=== PATIENT | male | born 1940 | race Caucasian/White ===

== ENCOUNTER → 2023-07-31 15:40 | Outpatient (REF) | payer MEDICARE, SELFPAY | LOC: RAD 15:40 | PROVIDERS: ATTENDING PHYSICIAN Family Medicine | DX: R42 Dizziness and giddiness (principal) | CPT/HCPCS: 70450 ==

== ENCOUNTER → 2023-12-29 09:39 | Outpatient (REF) | payer MEDICARE, SELFPAY ==
[2023-12-29 12:21] LABS: Hematocrit 37.4 % (39.0-52.0); Hemoglobin 12.8 g/dL (13.0-18.0); Mean Corp Hgb Conc. 34.2 g/dL (33.0-37.0); Mean Corpuscular Hgb 31.4 pg (27.0-31.0); Mean Corpuscular Volume 91.9 fL (80.0-94.0); Mean Platelet Volume 11.9 fL (7.4-10.4); Platelet Count 129 10^3/uL (130-400); Red Blood Cell Count 4.07 10^6/uL (4.70-6.10); Red Cell Dist. Width 13.2 % (11.5-14.5); White Blood Cell Count 5.5 10^3/uL (4.8-10.8)
[2023-12-29 12:24] LABS: PSA, Total - Screen 1.68 ng/ml (0.0-4.0)
== END ==
LOC: HWLAB 09:39
PROVIDERS: ATTENDING PHYSICIAN Specialist; FAMILY PHYSICIAN Family Medicine
DX: E29.1 Testicular hypofunction (principal); Z12.5 Encounter for screening for malignant neoplasm of prostate
CPT/HCPCS: 36415; 84403; 85027; G0103

== ENCOUNTER → 2024-01-05 10:24 | Outpatient (REF) | payer MEDICARE, SELFPAY ==
[2024-01-05 12:00] LABS: Blood Urea Nitrogen 22 mg/dl (9-20); Calcium 9.7 mg/dl (8.4-10.2); Carbon Dioxide 25 mmol/L (22-30); Chloride 102 mmol/L (98-107); Glucose 102 mg/dl (70-99); Potassium 4.5 mmol/L (3.5-5.1); Sodium 143 mmol/L (135-145); eGFR > 60.00
== END ==
LOC: HWLAB 10:24
PROVIDERS: ATTENDING PHYSICIAN Specialist; FAMILY PHYSICIAN Family Medicine
DX: D49.512 Neoplasm of unspecified behavior of left kidney (principal)
CPT/HCPCS: 36415; 80048

== ENCOUNTER → 2024-01-08 15:05 | Outpatient (REF) | payer MEDICARE, SELFPAY | LOC: RAD 15:05 | PROVIDERS: ATTENDING PHYSICIAN Specialist; FAMILY PHYSICIAN Family Medicine | DX: D49.512 Neoplasm of unspecified behavior of left kidney (principal) | CPT/HCPCS: 74170; Q9967 ==

== ENCOUNTER 2024-01-15 21:14 | Observation (INO) | payer MEDICARE, SELFPAY ==
[2024-01-15 14:02] VITALS: BP 173/80
--- NOTE | 2024-01-15 15:09 | ED.GENMED ---
History of Present Illness
General
Chief Complaint: Dizziness
Source: patient
Exam Limitations: none
Time Seen by Provider: 01/15/24 15:08
Nursing documentation reviewed up to this point in time: agreed with
History of Present Illness
History of Present Illness:
83-year-old male with history of HTN but does not taken any medications.
States he has had 315 to 20-minute episodes of room spinning dizziness in the past 3 days. The last 1 was 1130 this morning when he was shopping at [employer], the room was spinning for 20 to 25 minutes at a intensity of 8/10, he continued shopping, he
drove to another food store, still felt 'disoriented' but eventually diminished to 3/10 which remains now. He denies change in vision. He denies headache.
He had a few similar episodes for past 2 years where dizziness 'almost brings me to my knees' but never several episodes within such a short time like recently.
He saw his ENT Dr. Morgan 2 days ago and he states Dr. Morgan did the Jaime's maneuver which was negative and he scheduled him for vertigo therapy and could not get any appointment until March.
He took his BP at one point today, he had some leftover losartan 50 mg today so he took 1 when he found his blood pressure to be high '193/83'
Has felt nauseous at times during these episodes but none now.
Denies CP, SOB, Abd pain, diarrhea/constipation. He has been urinating frequently today which is not normal for him '5-6 times in the past hour.' Denies dysuria.
Past History
Past History
ED Past Medical History: HTN (But does not take medication (losartan 50 mg))
ED Past Surgical History: Orthopedic and Other (Hernia repair)
Social History
Tobacco: Non-smoker
Alcohol: None
Drug: None
Personal:
Living: with family
Employment: Employed
Family History
Family History: Hypertension
Review of Systems
Review of Systems
Allergies reviewed?: Yes
All Other Systems: ROS reviewed and negative except as documented in HPI and ROS
Constitutional: Denies fever, fatigue or chills
Respiratory: Denies trouble breathing
Cardiac: Denies chest pain, diaphoresis or syncope
ABD/GI: Reports nausea (intermittent with the dizziness); Denies abdominal pain
: Reports frequency (today went 5-6 times in past hour); Denies dysuria, flank pain, incontinence or urgency
Musculoskeletal: Reports no symptoms; Denies edema
Skin: Reports no symptoms
Neurological: Reports dizzy; Denies headache, weakness or numbness
Phy Exam
Physical Exam
Physical Exam:
GENERAL: No acute distress. A&Ox3.
CONSTITUTIONAL: Afebrile.
EYES: PERRL, conjunctivae normal
Neck: Supple
ENMT: moist mucus membranes, Pharynx nl, TMs normal
RESPIRATORY: Regular respirations, nonlabored, lungs clear.
CARDIOVASCULAR: Regular rate and rhythm, no murmurs, no rubs.
GI: Soft, nontender, normal BS
MUSCULOSKELETAL: Moves with ease. Well perfused.
SKIN: Warm, dry, pink
PSYCH: Normal mood and affect. Well kept, interactive and appropriate
NEUROLOGIC: Awake, alert and oriented. No focal neurological deficits. CN 2-12 intact, Finger to nose intact, ambulates well with steady gait.
Course
Orders/Labs/Results
Orders:
Orders
01/15/24 14:06
Electrocardiogram (*1) Urgent
Reason for Study: Vertigo / Dizzy
EKG- Treatment ONCE
01/15/24 15:18
CT Head W/o Iv Contrast Urgent
Comment:
Reason For Exam: dizziness
01/15/24 16:04
Physical Therapy Consult [Pt Eval And Treat] Urgent
Treatment: vestibular evaluation
Activity Level: As Tolerated
01/15/24 16:17
Complete Blood Count/With Diff Urgent
Comprehensive Metabolic Panel Urgent
Manual Differential Urgent
Urinalysis Reflex To Culture Urgent
Date Specimen was Collected: 01/15/24
Time Specimen was Collected: 16:16
01/15/24 16:46
NEUROLOGY CONSULT Urgent
Consulting Provider: Juju Brown
Was physician already notified: Yes
Reason for consult: dizziness
01/15/24 16:49
CT Head & Neck Angio W/wo IV Urgent
Comment:
Reason For Exam: dizziness, Neurology requested
01/15/24 18:10
MRI Brain [MR Brain Without Contrast] Routine
Comment:
Reason For Exam: vertigo
OK for patient to be off Cardiac Monitoring for MRI: No
Recent pill cam endoscopy?: No
01/15/24 18:44
CRP [C-Reactive Protein] Routine
ESR [Erythrocyte Sed Rate] Routine
Magnesium Routine
PTH [Intact PTH Includes Calcium] Routine
01/15/24 20:37
Admit/Transfer Patient As Directed
Co-Sign Provider:
Level of Care: Observation services
Assign to:: Telemetry
Physician / Group: michael blake
Diagnosis: Dizziness concern CVA/TIA versus BPPV, HTN-noncompliant medication
Reason for Telemetry: CVA/TIA
Date to Stop Telemetry: 01/18/24
Time to Stop Telemetry: 11:00
Reason for Hospitalization: Dizziness concern CVA/TIA versus BPPV, HTN-noncompliant medication
Code Status As Directed
Resuscitation Status: Full Code
01/15/24 20:39
PRN Pain Medication Management As Directed
May give lesser potent ordered pain med per pt: Yes
preference::
Protocol:: Medication orders for pain may be administered in a
manner that supports deferring to patient preference
when the pt is:
- Requesting an ordered lesser potent pain medication.
Least to most potent pain medications are defined
as: acetaminophen < NSAID < tramadol < opioids
(morphine, oxycodone, hydromorphone).
- Requesting a lesser dose of the same medication IF
ORDERED.
- Requesting a less intrusive route of administration
if both routes are prescribed by the provider (PO <
IV).
01/18/24 11:00
DC Protocol for Telemetry ONCE
Abnormal Lab Results
01/15/24
16:17
RBC 4.07 L 10^6/uL
(4.70-6.10)
Hgb 12.7 L g/dL
(13.0-18.0)
Hct 37.3 L %
(39.0-52.0)
MCH 31.2 H pg
(27.0-31.0)
Plt Count 113 L 10^3/uL
(130-400)
MPV 12.5 H fL
(7.4-10.4)
Monocytes (Manual) 18 H %
(2-9)
BUN 23 H mg/dl
(9-20)
Glucose 118 H mg/dl
(70-99)
Total Protein 6.2 L g/dl
(6.3-8.2)
01/15/24 16:17
01/15/24 16:17
Vital Signs
Initial and Last Documented VS:
Initial Vital Signs
Temp Pulse Resp BP Pulse Ox
97.8 F 68 16 173/80 97
01/15/24 14:02 01/15/24 14:02 01/15/24 14:02 01/15/24 14:02 01/15/24 14:02
Last Documented Vital Signs
Temp Pulse Resp BP Pulse Ox
97.8 F 88 18 166/88 98
01/15/24 14:02 01/15/24 20:30 01/15/24 20:30 01/15/24 20:30 01/15/24 20:30
MDM/Problems Addressed
Differential Diagnosis Includes:
Peripheral: Triggered episodic vestibular syndrome such as BPPV, spontaneous episodic vestibular syndrome such as vestibular neuritis, acute vestibular syndrome, Menier's, acoustic neuroma
Central: TIA, Cerebellar infarct/ischemia, vestibular migraine, Nonspecific dizziness
MDM/Problems Addressed:
83-year-old male with history of HTN but does not taken any medications.
States he has had three 15 to 20-minute episodes of room spinning dizziness in the past 3 days. The last 1 was 1130 this morning when he was shopping at [employer], the room was spinning for 20 to 25 minutes at a intensity of 8/10, he continued shopping,
he drove to another food store, still felt 'disoriented' but eventually diminished to 3/10 which remains now. He denies change in vision. He denies headache.
He had a few similar episodes for past 2 years where dizziness 'almost brings me to my knees' but never several episodes within such a short time like recently.
He saw his ENT Dr. Morgan 2 days ago and he states Dr. Morgan did the Jaime's maneuver which was negative and he scheduled him for vertigo therapy and could not get any appointment until March.
He took his BP at one point today, he had some leftover losartan 50 mg today so he took 1 when he found his blood pressure to be high '193/83'
Has felt nauseous at times during these episodes but none now.
Denies CP, SOB, Abd pain, diarrhea/constipation. He has been urinating frequently today which is not normal for him '5-6 times in the past hour.' Denies dysuria.
EKG: NSR
4:40 p.m.
CBC, CMP with no clinically significant abnormality
U/A neg
Head Ct shows nothing acute
P/T consulted: the Paul-Hallpike maneuver was negative bilaterally zero symptoms walk without an assistive device and he didn�t do poorly. He was just very guarded and you could tell not great balance Pt expressed getting a frontal headache when his
symptoms are bad. At the end of P/T eval, his blood pressure did go up 30 points systolic after we ambulated.
Consulted Neurology Dr. Brown who requests CTA head and neck and she will be in to see pt
Pt and updated. Fine with plan
6:00 PM:
Neurologist in, orders written, hospitalist notified of admission
*EKG
EKG Intrepretation Date: 01/15/24
Interpretation: abnormal
Heart Rate: 62
Rate: normal
Rhythm: sinus
[place]: left axis deviation
Interval: normal interval
QRS Pattern: normal QRS
Ischemia: no ischemia
*Critical Care Note
Total Time (30-74mins, 75-104mins- exclusive of procedures): Not Applicable
ED Attending Note
-
Portions of this chart may have been created with voice recognition software.� Occasional wrong word or��sound alike� substitutions may have occurred due to the inherent limitations of voice recognition software.
Discharge Plan
Departure
Patient Disposition: Admit
Date of Disposition: 01/15/24
Time of Disposition: 18:15
Admit to: Med/Surg
Presentation/result/management discussed w/ accepting MD/DO: Hospitalist
Condition: Good
Discharge Problem:
Dizziness
Prescriptions:
No Action
losartan 50 mg tablet
50 mg PO DAILYPRN PRN (Reason: high bp)
cyanocobalamin (vitamin B-12) 1,000 mcg Tablet
1,000 mcg PO DAILY
Theragen Tablet
1 tab PO DAILY
Calcium And Magnesium 750-465 mg Tablet
1 tab PO DAILY
grape seed extract [Grape Seed] 50 mg Capsule
50 mg PO DAILY
coenzyme Q10 [Co Q-10] 100 mg Capsule
100 mg PO DAILY
olive leaf extract 250 mg Capsule
250 mg PO DAILY
testosterone 20.25 mg/1.25 gram (1.62 %) gel in metered-dose pump
3 pump topical DAILY
Patient Comments:
01/15/2024: apply 3 PUMPS every morning to EACH UPPER arms and SHOULDER or ABDOMEN
L-Carnitine 500 mg Capsule
500 mg PO DAILY
aspirin 81 MG tablet,chewable
243 - 324 mg PO DAILYPRN PRN (Reason: sinus headache)
Referrals:
Nuno Hodge MD [Family Provider] -
Interventions
Interventions:
*Risk Screen - Suicide Last Done: 01/15/24 14:04
*General Assessment Last Done: 01/15/24 16:21
*Neglect/Abuse Screening Last Done: 01/15/24 14:04
*ED COVID-19 Vaccine History Last Done: 01/15/24 18:20
ED- Neurological Assessment Last Done: 01/15/24 16:20
ED Swallowing Screen Last Done: 01/15/24 16:20
Discharge Date and Time
Print Language: SYRIAN
[2024-01-15 16:34] VITALS: BP 130/49; BP 164/62
[2024-01-15 16:41] LABS: ALT (SGPT) 19 U/L (0-50); AST (SGOT) 28 U/L (17-59); Albumin 4.1 g/dl (3.5-5.0); Alkaline Phosphatase 59 U/L (38-126); Blood Urea Nitrogen 23 mg/dl (9-20); Calcium 9.1 mg/dl (8.4-10.2); Carbon Dioxide 27 mmol/L (22-30); Chloride 105 mmol/L (98-107); Glucose 118 mg/dl (70-99); Potassium 4.3 mmol/L (3.5-5.1); Sodium 141 mmol/L (135-145); Total Bilirubin 0.6 mg/dl (0.2-1.3); Total Protein 6.2 g/dl (6.3-8.2); eGFR > 60.00
--- NOTE | 2024-01-15 16:50 | CON.NEURO ---
Consultation
Order
Date of Consultation: 01/15/24
Requesting Provider: Rosalinda Iglesias NP
Reason for Consult: vertigo
CC: vertigo
HPI: This is an 83-year-old right-handed man who presented to [facility] on January 15, 2024 with elevated blood pressure and vertigo.
According to the patient he has had intermittent vertigo every three to four months for the past one and a half to two years. However, this week, he experienced vertigo three times, prompting the visit. He denies any current spinning sensation and
reports being generally off balance.
His vertigo episodes typically last for 10-15 minutes but lasted longer during the most recent episode, approximately 30 minutes or more. He experienced some nausea during the last couple of episodes, but no emesis. He reports that vertigo episodes
usually occur while standing or walking and sometimes happen when turning his head slightly. His blood pressure was reportedly 193/93 prompting him to seek medical attention.
He has a surgical history of a pineal cyst removal and cataract surgery with implants six months ago. His father had a history of heart attacks and strokes. He quit smoking 16 years ago.
ER VS: 173/80, 68, afebrile
EKG: NSR, QTc Int : 426 ms
PDMP:Testosterone 1.62% Gel Pump filled in on 01/04/2024
Labs: Hb�12.7, glucose�118, platelets�113, normal sodium, unremarkable urinary analysis.
CT head-bilateral basal ganglia calcifications
PMH:allergic rhinitis, HTN, BPPV, left renal cyst, COVID pneumonia
PSH: BL cataract surgery, bilateral medial antrostomies and partial bilateral ethmoidectomies.
SH: ; retired; former smoker; no history of excessive ETOH use
FH:father in his 60s, had CAD; mother in her late 80s, had arthritis
All:NKDA
ROS:Constitutional: Negative. Negative for chills, fever and unexpected weight change.
HENT: Vertigo, sinus congestion, intermittent bilateral tinnitus
Eyes: Negative. Negative for photophobia, pain and visual disturbance.
Respiratory: Negative for cough, choking and shortness of breath.
Cardiovascular: Negative for chest pain, palpitations and leg swelling.
Gastrointestinal: Negative for abdominal pain and vomiting. Positive for sinus congestion,
Endocrine: Negative. Negative for cold intolerance.
Genitourinary: Negative for dysuria, flank pain and urgency.
Musculoskeletal: Positive for back radiating into left leg
Skin: Negative for rash.
Allergic/Immunologic: Negative. Negative for immunocompromised state.
Neurological: Positive for imbalance, headache, but then developed about the patient
Psychiatric/Behavioral: Negative for behavioral problems, confusion and hallucinations.
General: Well developed. In no acute distress.
Cardio: Regular rate and rhythm without murmur. Extremities are without cyanosis or edema.
Neuro:
Mental Status: Alert, oriented to person, place, and date. Normal attention and recall. Good fund of knowledge. Follows complex requests across the midline. Comprehension, naming, and repetition intact. Immediate and delayed recall 3/3.
Cranial Nerves: . Pupils are equally round, surgical EOMs full. Visual rodrigues full to confrontation. No ptosis. No nystagmus. V1-V3 intact to light touch and pinprick bilaterally, symmetric. Face symmetric. Mildly impaired hearing AU. The
palate elevated well. SCMs and traps 5/5. Tongue midline. No dysarthria.
Motor: Normal bulk and tone. No pronator or arm drift. Strength 5/5 throughout. No clonus.
Reflexes: 1+ throughout the upper extremities and knees. Plantar responses flexor bilaterally.
Sensory: Reduced vibration in the left ankle and bilateral toes.
Coordination: No dysmetria or tremor.
Gait: deferred
Bilateral pes cavus
Assessment and Plan:
I. Probable BPPV
II. L L5-S1 radiculopathy
III. Tension headache, likely secondary due to sinusitis
IV. Basal ganglia calcifications, likely degenerative
-Fall precautions
-Please obtain brain MRI wo magan given stroke risk factors
-PT
-Please check PTH, vit D level, ESR/CRP
-ENT consult
-Will follow
I personally reviewed all radiology and labs along with past medical records pertinent to current medical problems. Total time spent in patient care is 55 minutes.
Thank you for allowing us to participate in the care of this patient. We will continue to follow. Please do not hesitate to contact us with any questions or concerns.
Subjective/Objective
Subjective Data
Date of Service: January 15, 2024
Objective Data
Vital Signs
Temp Pulse Resp BP Pulse Ox
36.6 C 68 16 173/80 97
01/15/24 14:02 01/15/24 14:02 01/15/24 14:02 01/15/24 14:02 01/15/24 14:02
Lab Results
01/15/24 16:17
Sodium 141 mmol/L (135-145) 01/15/24 16:17
Potassium 4.3 mmol/L (3.5-5.1) 01/15/24 16:17
BUN 23 mg/dl (9-20) H 01/15/24 16:17
Glucose 118 mg/dl (70-99) H 01/15/24 16:17
Calcium 9.1 mg/dl (8.4-10.2) 01/15/24 16:17
Patient Allergies
seasonal Allergy (Uncoded 08/18/20 14:57)
Unknown
Medications
-
Home Medications
�Medication �Instructions �Recorded
famotidine 20 mg tablet 20 mg PO BID #28 tabs 08/01/20
melatonin 5 mg tablet 5 mg PO HS #14 tabs 08/01/20
guaifenesin 600 mg tablet, 600 mg PO Q12 08/22/20
extended release 12 hr (Mucus
Relief ER)
aspirin 81 mg chewable tablet 81 mg PO DAILY #14 tabs 09/06/20
Vital Signs and Labs
-
Vital Signs and Labs:
Vital Signs
Temp Pulse Resp BP Pulse Ox
36.6 C 68 16 173/80 97
01/15/24 14:02 01/15/24 14:02 01/15/24 14:02 01/15/24 14:02 01/15/24 14:02
Lab Results
01/15/24 16:17
01/15/24 16:17
Sodium 141 mmol/L (135-145) 01/15/24 16:17
Potassium 4.3 mmol/L (3.5-5.1) 01/15/24 16:17
BUN 23 mg/dl (9-20) H 01/15/24 16:17
Glucose 118 mg/dl (70-99) H 01/15/24 16:17
Calcium 9.1 mg/dl (8.4-10.2) 01/15/24 16:17
Home Medications
-
Home Medications
famotidine 20 mg tablet 20 mg PO BID #28 tabs 08/01/20
melatonin 5 mg tablet 5 mg PO HS #14 tabs 08/01/20
guaifenesin 600 mg tablet, extended release 12 hr (Mucus Relief ER) 600 mg PO Q12 08/22/20
aspirin 81 mg chewable tablet 81 mg PO DAILY #14 tabs 09/06/20
[2024-01-15 17:09] LABS: Urine Albumin Negative (Neg - Trace); Urine Bilirubin Negative (Negative); Urine Character Clear (Clear); Urine Color Yellow; Urine Glucose Negative (Negative); Urine Ketone Negative (Negative); Urine Leukocyte Negative (Negative); Urine Nitrite Negative (Negative); Urine Occult Blood Negative (Negative); Urine Urobilinogen Negative (Neg - 1+)
[2024-01-15 17:40] LABS: Hematocrit 37.3 % (39.0-52.0); Hemoglobin 12.7 g/dL (13.0-18.0); Mean Corpuscular Hgb 31.2 pg (27.0-31.0); Mean Corpuscular Volume 91.6 fL (80.0-94.0); Mean Platelet Volume 12.5 fL (7.4-10.4); Platelet Count 113 10^3/uL (130-400); Red Blood Cell Count 4.07 10^6/uL (4.70-6.10); Red Cell Dist. Width 13.3 % (11.5-14.5); White Blood Cell Count 6.2 10^3/uL (4.8-10.8)
[2024-01-15 18:42] VITALS: BP 154/63
[2024-01-15 19:04] LABS: Calcium 9.1 mg/dl (8.4-10.2); Magnesium 2.2 mg/dl (1.6-2.3)
[2024-01-15 19:15] LABS: Erythrocyte Sed Rate 13 mm/hour (0-20)
[2024-01-15 19:23] LABS: Absolute Neutrophils -Man Diff 3.6 10^3/uL (1.4-6.5); Band Neutrophils 0 % (0-3); Pathologist Reviewed No; Segmented Neutrophils 59 % (42-75)
[2024-01-15 19:24] LABS: Lymphocytes 23 % (20-51); Monocytes 18 % (2-9); Normal RBC Morphology Yes; Platelets Checked Yes; Total Cells Counted 100
--- NOTE | 2024-01-15 19:38 | HPS.HSE ---
Addendum entered and electronically signed by Gifty Hall DO 01/15/24 22:20:
The patient is seen and examined with Chrissie. I have reviewed her history and physical, and agree with this along with assessment and plan of care as per below. He has had 3 episodes of dizziness this past week, that improved after lying down for 20
minutes. No ataxia, no focal deficits.
VSS, AF
Neuro-no focal deficits, no CN deficits, no facial droop
Lungs-CTA b/l no w/r/r
CV-RRR, no m/r/g
Concern is for possible posterior circulation CVA vs vertigo/BPPV
-admit for stroke workup, Neuro Cx appreciated, MRI pending, neuro-checks
-cont aspirin, will decrease dose to 81 mg, possibly can be causing rebound headaches
-Has f/u with Ophthalmology , does not have vision changes nor peripheral vision deficits
Likely tension headaches versus headache from sinus infection/chronic sinusitis
-he follows OP with ENT
-
Original Note:
Family Physician
-
Family Physician: Nuno Hodge
Chief Complaint
-
Reported spinning sensation bilateral eyes, daily headaches
History of Present Illness
83-year-old male reports at 1130 this a.m. while shopping at [employer] the room spinning for approximate 20 to [address] minutes[address] to another store while still feeling disoriented and eventually diminished to level of 3/10. He reports he had 3
episodes over the past 3 days lasting approximately 15 to 20 minutes with a spinning sensation of both eyes separately he feels like 2 separate tunnels. He saw ENT Dr. Morgan 2 days ago who performed Jaime's maneuver which was negative and
scheduled him for outpatient vertigo therapy he was unable to get any appointment until March. He also reports his blood pressure was elevated today at 193/83 so he took additional 50 mg of losartan. He reports he takes his blood pressure
medication only as needed he states that he will take it if systolic blood pressure above 150 he believes SBP 130-140 is fine. I made him aware he should be taking his blood pressure medication daily especially given daily headaches. I also
advised him to follow-up with his PCP or neurology regarding headache management. He denies blurred vision, fever, chills, chest pain, palpitations, shortness breath, cough, abdominal pain, vomiting, diarrhea. While in the room he walked to the
bathroom with steady gait no reports of current vertigo/dizziness/blurred vision. He has past medical history of hypertension, former smoker
Medical History
Past Medical History
Past Medical History: Reports Other
Additional Past Medical History:
Hypertension
Former smoker
Daily headaches
Past Surgical History: Reports Other
Additional Past Surgical History:
Pineal cyst removal
Cataract extraction
Arthroscopy left knee 1996 foot surgery 1999
Sinus surgery 2003
Hernia repair 2019
Social History
Tobacco: Former Smoker
Alcohol: None
Drug: None
Personal:
Living: With Family ()
Employment: Retired (1 year ago)
Family History
Family History: Other (Father age 60 after third [place], mother age 84 unsure)
Allergies / Home Medications
Allergies reflects when Allergies were last updated in [email or web address].
Home Medications with original date entered in [email or web address]
Allergy/Medication List:
Allergies
Allergy/AdvReac Type Severity Reaction Status Date / Time
seasonal Allergy Unknown Uncoded 08/18/20 14:57
Home Medications
aspirin 81 mg chewable tablet 243 - 324 mg PO DAILYPRN PRN sinus headache 01/15/24
calcium-magnesium 750 mg-465 mg tablet 1 tab PO DAILY Supplement 01/15/24
coenzyme Q10 100 mg capsule (Co Q-10) 100 mg PO DAILY Supplement 01/15/24
cyanocobalamin (vitamin B-12) 1,000 mcg tablet 1,000 mcg PO DAILY Supplement 01/15/24
grape seed extract 50 mg capsule 50 mg PO DAILY Supplement 01/15/24
levocarnitine 500 mg capsule (L-Carnitine) 500 mg PO DAILY Supplement 01/15/24
losartan 50 mg tablet 50 mg PO DAILYPRN PRN high bp 01/15/24
olive leaf extract 250 mg capsule 250 mg PO DAILY Supplement 01/15/24
testosterone 3 pump topical DAILY Hormonal Agent 01/15/24
therapeutic multivitamin 1 tab PO DAILY Supplement 01/15/24
Review of Systems
-
History Source: Patient and Family ( at bedside)
A 12 point ROS was completed and negative except as noted: Yes
Constitutional: Denies Fever, Fatigue or Chills
EENT: Reports Other (Spinning sensation bilateral eyes he reports as HI separate); Denies Sore Throat, Mouth Swelling or Runny Nose
Respiratory: Denies Cough, Hemoptysis or Trouble Breathing
Cardiac: Denies Chest Pain, Diaphoresis, Palpitations or Syncope
Abdomen/GI: Denies Abdominal Pain, Nausea, Vomiting, Diarrhea, Constipated, Bloody Stools or Black Stools
: Denies Dysuria, Frequency, Flank Pain, Incontinence, Difficulty Voiding, Urgency or Bleeding
Musculoskeletal: Denies Joint Pain or Edema
Skin: Denies Itching or Rash
Neurological: Denies Dizzy or Headache
Endocrine: Reports No Symptoms
Hematologic/Lymphatic: Reports No Symptoms
Psych: Reports Calm
Physical Exam
Vital Signs
Vital Signs
Temp Pulse Resp BP Pulse Ox
97.8 F 68 16 154/63 97
01/15/24 14:02 01/15/24 14:02 01/15/24 14:02 01/15/24 18:42 01/15/24 14:02
Physical Exam
General: Comfortable and Conversant; No Pain, Fever or Chills
HEENT: NormoCephalic, Anicteric, Moist mucous membranes, PERRLA, [place] Conjunctivae, No Ptosis and Neck Nontender
Respiratory: Clear; No Wheezes, Rales or Rhonchi
Cardiac: S1/S2 and Regular Rhythm; No Murmur, Rub, Gallop or Peripheral Edema
Breast: Deferred by me
GI: Soft, Non Tender, Normal Bowel Sounds and No Hepatosplenomegaly
Rectal: Deferred by Provider
Genito-urinary: Deferred by me
Musculoskeletal: No Clubbing, No Cyanosis and No Edema
Skin: Warm and Dry; No Rash
Neuro: AO x 3, No Motor Deficits, Nonfocal/grossly intact, Cranial Nerves Intact, No Sensory Deficits and Facial Droop; No Slurred Speech, Tremors or Sedated
Psych: Calm
Laboratory Results
-
01/15/24 16:17
01/15/24 16:17
Laboratory Results
Total Bilirubin 0.6 mg/dl (0.2-1.3) 01/15/24 16:17
AST 28 U/L (17-59) 01/15/24 16:17
ALT 19 U/L (0-50) 01/15/24 16:17
Alkaline Phosphatase 59 U/L (38-126) 01/15/24 16:17
Data Reviewed
-
CT Scan: Report Reviewed by me
Lab Data: Labs Reviewed by me
Impression/Plan
-
Impression/plan:
Observation telemetry
#Recurrent dizziness concern for CVA/TIA/ vs BPPV
-Consult neurology
-PT/OT/case management consult
-MRI brain without contrast
-Check PTH, vitamin D, ESR/CRP
-Check lipid profile, HgbA1c
-Continue aspirin 324 mg daily patient takes daily for headaches
CTA head and neck:
1. No acute pathology no evidence of M1 or M2 occlusion
2. Minimal nonacute sinusitis
3. Multilevel cervical spine DDD
# Chronic daily headaches
-Patient reports overlying sinus area daily headaches relieved with 4 baby aspirin typically 5 days a week
-Advised patient to follow-up with outpatient PCP or neurology regarding frequency of headaches and outpatient management
#HTN�benign
BP 154/63
-Continue losartan 50 mg daily patient has only been taking it as needed if SBP greater than 150
DVT prophylaxis
SCDs
Full code
[2024-01-15 20:30] VITALS: BP 166/88
[2024-01-15 22:01] VITALS: BP 158/85; BMI 27.1
--- NOTE | 2024-01-15 22:39 | PTCARENOTE ---
Patient received from the ED via stretcher. Patient ambulated into the room. AAOx3, VSS. Patient has no complaints of pain. NIH 0. Passed swallow screen. Educated on the purpose of Knee High SCD's. Patient refused. Patient oriented to the unit, call
isaac is within reach.
[2024-01-15 23:00] VITALS: BP 134/49
[2024-01-16 00:01] VITALS: BP 134/49
[2024-01-16 03:33] VITALS: BP 125/51
[2024-01-16 07:17] LABS: Hemoglobin 13.3 g/dL (13.0-18.0); Mean Corp Hgb Conc. 34.1 g/dL (33.0-37.0); Mean Corpuscular Hgb 31.9 pg (27.0-31.0); Mean Corpuscular Volume 93.5 fL (80.0-94.0); Mean Platelet Volume 12.1 fL (7.4-10.4); Platelet Count 111 10^3/uL (130-400); Red Blood Cell Count 4.17 10^6/uL (4.70-6.10); Red Cell Dist. Width 13.3 % (11.5-14.5); White Blood Cell Count 6.9 10^3/uL (4.8-10.8)
[2024-01-16 07:40] VITALS: BP 131/62
[2024-01-16 07:46] LABS: ALT (SGPT) 17 U/L (0-50); AST (SGOT) 22 U/L (17-59); Albumin 3.9 g/dl (3.5-5.0); Alkaline Phosphatase 68 U/L (38-126); Blood Urea Nitrogen 19 mg/dl (9-20); Calcium 8.8 mg/dl (8.4-10.2); Carbon Dioxide 26 mmol/L (22-30); Chloride 105 mmol/L (98-107); Estimated Creatinine Clearance 75 ml/min; Glucose 102 mg/dl (70-99); HDL Cholesterol 54 mg/dl; LDL Cholesterol, Calculated 76 mg/dl; Potassium 4.2 mmol/L (3.5-5.1); Sodium 143 mmol/L (135-145); Total Cholesterol 148 mg/dl (50-199); Total Protein 6.1 g/dl (6.3-8.2); Triglyceride 91 mg/dl (10-149); Very Low Density Lipoprotein 18 mg/dl (0-30); eGFR > 60.00
[2024-01-16] MEDS: COZAAR 50 MG PO (08:33)
[2024-01-16] MEDS: VITAMIN B-12 1000 MCG PO (08:33)
[2024-01-16 08:39] LABS: Vitamin B12 905 pg/ml (239-931)
[2024-01-16 09:04] LABS: Absolute Neutrophils -Man Diff 2.6 10^3/uL (1.4-6.5); Band Neutrophils 0 % (0-3); Eosinophils 1 % (0-6); Lymphocytes 36 % (20-51); Monocytes 22 % (2-9); Myelocytes 2 % (-); Normal RBC Morphology No; Nucleated Red Blood Cells 1 (-); Platelets Checked Yes; Segmented Neutrophils 39 % (42-75)
[2024-01-16 09:05] LABS: Anisocytosis Slight; Hypochromasia 1+; Total Cells Counted 100
[2024-01-16 10:17] LABS: Glycohemoglobin (HgbA1c) 5.7 % (4.0-5.6)
[2024-01-16 10:36] VITALS: BP 146/55; PULSE 56; O2SAT 96
--- NOTE | 2024-01-16 11:30 | W.PN.HOSP.TC ---
Addendum entered and electronically signed by Eduard Rod MD 01/16/24 14:21:
seen and examind. described dizziness as room spinning, feels as though his eye become heavy before episode
-no loss of hearing
-able to ambulate to bathroom and room without unsteady gait
-no nv
-no ringing in the ears
mri wiithout acute changes
NAD, resting comfortably in bed
Scleral anicteric, b/l lens replacement, no horizontal nor vertical nystagmus noted
Moist mucous membranes
No JVD
CTA bilateral
Normal S1-S2 no murmurs
Soft nontender nondistended bowel sounds active
No peripheral pitting edema
Moves extremities spontaneously. 5/5 motor strenght in b/l le and b/l ue
AAOx3
dizziness likely vertigo/bppv, with tinitus/loss of hearing unlikley middle ear pathology
-with sayign that would have him follow up with ent
-contineu meclizine
plan to dc home
Original Note:
Today's Communication/Plan
-
Assessment / Plan
Assessment / Plan
Mr. Hernandez Diaz is an 83yo male pmh afib, CAD, hx CVA, htn, hld, vertigo, and cataract surgery 6mo ago admitted today for a change in his dizziness episodes.
Dizziness, vertigo, hx CVA
- Na 143, K 4.2
- Hb 13.3
- PTH 85.1
- vitamin B12: 905
- orthostatic VS: negative for orthostatic HoTN
- Urinalysis: no abnormalities
- CT head: No acute intracranial abnormality
- CTA head and neck: No acute pathology. No evidence of M1 nor M2 occlusion. Minimal nonacute sinusitis. Multilevel cervical spine degenerative disc disease
- MRI brain: No evidence of acute intracranial abnormality.
- Neuro consulted
- Unlikely to be stroke based on benign neuro exam findings and no evidence of intracranial abnormality on CT head and brain MRI, no occlusions on CTA head and neck.
- likely bppv based on h vertigo, normal imaging, no anemia, no electrolyte imbalance, no arrhythmia at present, no signs of infection
Afib, CAD
- ECG: NSR, no ischemia
- not on oral anticoagulation
HTN
- continue losartan
Thrombocytopenia
- plt 111
- near baseline of 129 on 12/29/23
- no active bleeding
Overweight, Prediabetes
- BMI 27.1
- HbA1c 5.7
- Fasting glucose 102
- manage w diet, lifestyle changes
Anticipated Discharge: Today
Subjective/Interval History
-
Date of Service: January 16, 2024
Mr. Hernandez Diaz is an 83yo male pmh afib, CAD, hx CVA, vertigo, and cataract surgery 6mo ago admitted today for a change in his dizziness episodes. Has had an episode of vertigo 1x/3-4months for the past 1.5-2 years. Has had dizzy spells 3x in
the last week (Thursday, Thursday, Thursday). Usually the spells last 10-15 min, but have been lasting 30+ min. Has a prodrome of feeling 'heavy eyes.' States his balance has been off. Recently visited ENT, (-) Jaime maneuver. No dizziness while at rest
since he has been in the hospital.
Objective Data
-
Labs:
Laboratory Results
01/16/24
06:20
WBC 6.9
Hgb 13.3
Hct 39.0
Plt Count 111 L
Sodium 143
Potassium 4.2
Chloride 105
Carbon Dioxide 26
BUN 19
Creatinine 0.8
Glucose 102 H
Calcium 8.8
Total Bilirubin 1.0
AST 22
ALT 17
Alkaline Phosphatase 68
Vital Signs:
Vital Signs
Temp Pulse Resp BP Pulse Ox
98.7 F 60 22 131/62 97
01/16/24 07:40 01/16/24 07:40 01/16/24 07:40 01/16/24 07:40 01/16/24 07:40
I&O
01/15/24 01/16/24 01/17/24
06:59 06:59 06:59
Intake Total 960 / 960
Balance 960 / 960
Review of Systems
-
History Source: Patient
All other systems: Reviewed and negative
Constitutional: Denies Fever or Chills
EENT: Denies Eye Pain or Dry Eyes
Respiratory: Denies Cough or Trouble Breathing
Cardiac: Denies Chest Pain or Palpitations
Abdomen/GI: Denies Nausea, Vomiting, Diarrhea or Constipated
Neuro: Reports Dizzy and Weakness; Denies Headache or Numbness
Physical Exam
-
General: Well Developed and Well Nourished
HEENT: Normocephalic, Atraumatic, PERRLA and Other (no nystagmus)
Respiratory: Clear to Auscultation; Negative Wheezes, Rales or Rhonchi
Cardiac: Regular Rhythm, S1/S2 and Bradycardic; Negative Murmur, Rub or Gallop
GI: Soft, Nontender, Nondistended and Normal Bowel Sounds
Skin: Warm and Dry; Negative Rash or Lesions
Neuro: AO x 3, No Motor Deficits, Central Nerve's Intact, No Sensory Deficits and DTR's Intact & Symmetrica
Psych: Calm
--- NOTE | 2024-01-16 11:41 | W.PN.NEURO.1 ---
Today's Communication / Plan
-
.
Subjective/Objective
Subjective Data
Date of Service: January 16, 2024
24h events: hypertensive yesterday in PM, afebrile.
Mr. Diaz endorses ongoing imbalance and headache as well as neck stiffness.
No spells of vertigo, change in vision.
Labs: Pl-111, normal ESR, CRP, HbA1C 5.7, LDL 76.
CTA head/neck-no hemodynamically significant stenoses.
PMH:allergic rhinitis, cervical DJD, HTN, BPPV, left renal cyst, COVID pneumonia
PSH: BL cataract surgery, bilateral medial antrostomies and partial bilateral ethmoidectomies.
SH: ; retired; former smoker; no history of excessive ETOH use
FH:father in his 60s, had CAD; mother in her late 80s, had arthritis
All:NKDA
ROS:Constitutional: Negative. Negative for chills, fever and unexpected weight change.
HENT: Vertigo, sinus congestion, intermittent bilateral tinnitus
Eyes: Negative. Negative for photophobia, pain and visual disturbance.
Respiratory: Negative for cough, choking and shortness of breath.
Cardiovascular: Negative for chest pain, palpitations and leg swelling.
Gastrointestinal: Negative for abdominal pain and vomiting. Positive for sinus congestion,
Endocrine: Negative. Negative for cold intolerance.
Genitourinary: Negative for dysuria, flank pain and urgency.
Musculoskeletal: Positive for back pain radiating into left leg, neck stiffness
Skin: Negative for rash.
Allergic/Immunologic: Negative. Negative for immunocompromised state.
Neurological: Positive for imbalance, headache,
Psychiatric/Behavioral: Negative for behavioral problems, confusion and hallucinations.
General: Well developed. In no acute distress.
Cardio: Regular rate and rhythm without murmur. Extremities are without cyanosis or edema.
Neuro:
Mental Status: Alert, oriented to person, place, and date. Normal attention and recall. Good fund of knowledge. Follows complex requests across the midline. Comprehension, naming, and repetition intact. Immediate and delayed recall 3/3.
Cranial Nerves: . Pupils are equally round, surgical EOMs full. Visual rodrigues full to confrontation. No ptosis. No nystagmus. V1-V3 intact to light touch and pinprick bilaterally, symmetric. Face symmetric. Mildly impaired hearing AU. The
palate elevated well. SCMs and traps 5/5. Tongue midline. No dysarthria.
Motor: Normal bulk and tone. No pronator or arm drift. Strength 5/5 throughout. No clonus.
Reflexes: 1+ throughout the upper extremities and knees. Plantar responses flexor bilaterally.
Sensory: Reduced vibration in the left ankle and bilateral toes.
Coordination: No dysmetria or tremor.
Gait: deferred
Bilateral pes cavus
Assessment and Plan:
I. Probable BPPV
II. L L5-S1 radiculopathy
III. Tension headache, likely secondary due to sinusitis
IV. Basal ganglia calcifications, likely degenerative
V. Cervical DJD worst at C6/C7.
-Fall precautions
-f/u brain MRI wo magan
-PT
-IV Toradol 30 mg, Reglan 10 mg, Benadryl 25 mg Q8h PRN for moderate to severe headache.
-Meclizine 25 mg Q8h PRN
-Please check PTH, vit D level, ESR/CRP
-ENT consult
-Will follow
I personally reviewed all radiology and labs along with past medical records pertinent to current medical problems. Total time spent in patient care is 40 minutes.
Thank you for allowing us to participate in the care of this patient. We will continue to follow. Please do not hesitate to contact us with any questions or concerns.
Objective Data
Vital Signs
Temp Pulse Resp BP Pulse Ox
37.1 C 60 22 131/62 97
01/16/24 07:40 01/16/24 07:40 01/16/24 07:40 01/16/24 07:40 01/16/24 07:40
Lab Results
01/16/24 06:20
01/16/24 06:20
Sodium 143 mmol/L (135-145) 01/16/24 06:20
Potassium 4.2 mmol/L (3.5-5.1) 01/16/24 06:20
BUN 19 mg/dl (9-20) 01/16/24 06:20
Glucose 102 mg/dl (70-99) H 01/16/24 06:20
Calcium 8.8 mg/dl (8.4-10.2) 01/16/24 06:20
LDL Cholesterol, Calc 76 mg/dl 01/16/24 06:20
Vitamin B12 905 pg/ml (317-801) 01/16/24 06:20
Patient Allergies
seasonal Allergy (Uncoded 08/18/20 14:57)
Unknown
Vital Signs and Labs
-
Vital Signs and Labs:
Vital Signs
Temp Pulse Resp BP Pulse Ox
36.9 C 50 22 140/61 97
01/16/24 11:42 01/16/24 11:42 01/16/24 11:42 01/16/24 11:42 01/16/24 11:42
Lab Results
01/16/24 06:20
01/16/24 06:20
Sodium 143 mmol/L (135-145) 01/16/24 06:20
Potassium 4.2 mmol/L (3.5-5.1) 01/16/24 06:20
BUN 19 mg/dl (9-20) 01/16/24 06:20
Glucose 102 mg/dl (70-99) H 01/16/24 06:20
Calcium 8.8 mg/dl (8.4-10.2) 01/16/24 06:20
LDL Cholesterol, Calc 76 mg/dl 01/16/24 06:20
Vitamin B12 905 pg/ml (699-032) 01/16/24 06:20
Medications
-
Medications:
Generic Name Dose Route Start Last Admin
Trade Name Freq PRN Reason Stop Dose Admin
Acetaminophen 650 mg 01/15/24 21:56
Acetaminophen 325 Mg Tablet PO 02/12/24 21:55
Q4HPRN PRN
mild pain/MORILLO/temp> 100.4F
Aspirin 81 mg 01/15/24 22:21
Aspirin 81 Mg Chewable Tablet PO 02/12/24 21:55
DAILYPRN PRN
sinus headache
Cyanocobalamin 1,000 mcg 01/16/24 08:00 01/16/24 08:33
Cyanocobalamin 1,000 Mcg Tablet PO 02/13/24 07:59 1,000 mcg
DAILY HUNG Administration
Losartan Potassium 50 mg 01/16/24 08:00 01/16/24 08:33
Losartan 50 Mg Tablet PO 02/13/24 07:59 50 mg
DAILY HUNG Administration
Meclizine HCl 25 mg 01/16/24 11:40
Meclizine 25 Mg Tablet PO 02/13/24 11:39
Q8HPRN PRN
vertigo
Sodium Chloride 0 flush 01/15/24 22:00
Sodium Chloride 0.9% (Flush) Syringe IV 02/12/24 21:59
PER PROTOCOL HUNG
Home Medications
-
Home Medications
aspirin 81 mg chewable tablet 243 - 324 mg PO DAILYPRN PRN sinus headache 01/15/24
calcium-magnesium 750 mg-465 mg tablet 1 tab PO DAILY Supplement 01/15/24
coenzyme Q10 100 mg capsule (Co Q-10) 100 mg PO DAILY Supplement 01/15/24
cyanocobalamin (vitamin B-12) 1,000 mcg tablet 1,000 mcg PO DAILY Supplement 01/15/24
grape seed extract 50 mg capsule 50 mg PO DAILY Supplement 01/15/24
levocarnitine 500 mg capsule (L-Carnitine) 500 mg PO DAILY Supplement 01/15/24
losartan 50 mg tablet 50 mg PO DAILYPRN PRN high bp 01/15/24
olive leaf extract 250 mg capsule 250 mg PO DAILY Supplement 01/15/24
testosterone 3 pump topical DAILY Hormonal Agent 01/15/24
therapeutic multivitamin 1 tab PO DAILY Supplement 01/15/24
[2024-01-16 11:42] VITALS: BP 140/61
[2024-01-16] MEDS: REGLAN 10 MG IV (12:12)
[2024-01-16] MEDS: BENADRYL 12.5 MG IV (12:13)
[2024-01-16] MEDS: TORADOL 30 MG IV (12:15)
[2024-01-16 13:10] LABS: Intact PTH 85.1 pg/ml (13.6-85.8)
--- NOTE | 2024-01-16 13:32 | W.DCSUMMARY ---
Documented by User: Abbey Barfield DO, Resident 01/16/24 14:09
Discharge Summary
Discharge Data
Date of Admission: 01/15/24
Date of Discharge: 01/16/24
-
Pending Results: No
Hospital Course
Mr. Hernandez Diaz is an 83yo male pmh afib, CAD, hx CVA, htn, hld, vertigo, and cataract surgery 6mo ago admitted today for a change in his dizziness episodes. Electrolytes WNL, not anemic, PTH WNL, vit B12 WNL. Pre-diabetic per HbA1c. Head CT,
head/neck CTA, brain MRI show no acute intracranial abnormalities, no vessel obstruction. PT eval recommends continued skilled care 3x/week to maintain functional status and to start OP vestibular therapy for improving balance and vestibular
symptoms.
Discharge Plan
-
Patient Disposition: Home (Routine Discharge)
Discharge Diagnosis/Procedures: Dizziness, Vertigo, prediabetes
Condition: Good
Activity: As tolerated
Activity Restrictions/Additional Instructions:
Please follow up with Dr. Hodge in 1-2 weeks to discuss dizziness and to discuss starting physical therapy 3x/week and OP vestibular therapy, per physical therapy recommendations.
Please return to the hospital if you experience new or worsening symptoms. This includes falling, passing out, change in vision, worsening balance, weakness, numbness, difficulty speaking.
Instructions: Vertigo (a type of dizziness), Lowering your risk of prediabetes and type 2 diabetes, Vestibular Exercises, Diabetes and diet
Referrals:
Nuno Hodge MD [Family Provider] -
Juju Brown MD [Active] -
Prescriptions:
New
meclizine 25 mg Tablet
25 mg PO Q8HPRN PRN (Reason: vertigo) 7 Days Qty: 21 0RF
Continued
losartan 50 mg tablet
50 mg PO DAILYPRN PRN (Reason: high bp)
cyanocobalamin (vitamin B-12) 1,000 mcg Tablet
1,000 mcg PO DAILY
therapeutic multivitamin Tablet
1 tab PO DAILY
calcium-magnesium 750-465 mg Tablet
1 tab PO DAILY
grape seed extract 50 mg Capsule
50 mg PO DAILY
coenzyme Q10 [Co Q-10] 100 mg Capsule
100 mg PO DAILY
olive leaf extract 250 mg Capsule
250 mg PO DAILY
testosterone 20.25 mg/1.25 gram (1.62 %) gel in metered-dose pump
3 pump topical DAILY
Patient Comments:
01/15/2024: apply 3 PUMPS every morning to EACH UPPER arms and SHOULDER or ABDOMEN
L-Carnitine 500 mg Capsule
500 mg PO DAILY
aspirin 81 MG tablet,chewable
243 - 324 mg PO DAILYPRN PRN (Reason: sinus headache)
Discharge Orders:
Discharge Patient (As Directed); Ordered 01/16/24
Ordered By: Abbey Barfield
Discharge Date and Time
Print Language: KINYARWANDA

Documented by User: Eduard Rod MD 01/16/24 14:14
Discharge Summary
Discharge Data
Date of Admission: 01/15/24
Date of Discharge: 01/16/24
Discharge Plan
-
Patient Disposition: Home (Routine Discharge)
Discharge Diagnosis/Procedures: Dizziness, Vertigo, prediabetes
Condition: Good
Activity: As tolerated
Activity Restrictions/Additional Instructions:
Please follow up with Dr. Hodge in 1-2 weeks to discuss dizziness and to discuss starting physical therapy 3x/week and OP vestibular therapy, per physical therapy recommendations.
Please return to the hospital if you experience new or worsening symptoms. This includes falling, passing out, change in vision, worsening balance, weakness, numbness, difficulty speaking.
Instructions: Vertigo (a type of dizziness), Lowering your risk of prediabetes and type 2 diabetes, Vestibular Exercises, Diabetes and diet
Referrals:
Nuno Hodge MD [Family Provider] -
Juju Brown MD [Active] -
Prescriptions:
New
meclizine 25 mg Tablet
25 mg PO Q8HPRN PRN (Reason: vertigo) 7 Days Qty: 21 0RF
Continued
losartan 50 mg tablet
50 mg PO DAILYPRN PRN (Reason: high bp)
cyanocobalamin (vitamin B-12) 1,000 mcg Tablet
1,000 mcg PO DAILY
therapeutic multivitamin Tablet
1 tab PO DAILY
calcium-magnesium 750-465 mg Tablet
1 tab PO DAILY
grape seed extract 50 mg Capsule
50 mg PO DAILY
coenzyme Q10 [Co Q-10] 100 mg Capsule
100 mg PO DAILY
olive leaf extract 250 mg Capsule
250 mg PO DAILY
testosterone 20.25 mg/1.25 gram (1.62 %) gel in metered-dose pump
3 pump topical DAILY
Patient Comments:
01/15/2024: apply 3 PUMPS every morning to EACH UPPER arms and SHOULDER or ABDOMEN
L-Carnitine 500 mg Capsule
500 mg PO DAILY
aspirin 81 MG tablet,chewable
243 - 324 mg PO DAILYPRN PRN (Reason: sinus headache)
Discharge Orders:
Discharge Patient (As Directed); Ordered 01/16/24
Ordered By: Abbey Barfield
Discharge Date and Time
Print Language: KINYARWANDA
[2024-01-16 15:08] VITALS: BP 128/61
--- NOTE | 2024-01-16 16:35 | CM ---
Patient for discharge home with outpatient PT, OT and vestibular rehab services. Rx placed on chart.
[2024-01-16 17:41] LABS: Magnesium 2.1 mg/dl (1.6-2.3)
== END 2024-01-16 17:17 | disposition home or self-care (01) ==
LOC: 4 EAST ACU 21:14
PROVIDERS: Clinical Nurse Specialist Family Health; Registered Nurse; ADMITTING PHYSICIAN Internal Medicine; ATTENDING PHYSICIAN Hospitalist; CONSULT PHYSICIAN Psychiatry & Neurology Neurology; EMERGENCY PHYSICIAN Emergency Medicine; FAMILY PHYSICIAN Family Medicine
DX: R42 Dizziness and giddiness (principal); I10 Essential (primary) hypertension; R11.0 Nausea; J32.9 Chronic sinusitis, unspecified; I48.91 Unspecified atrial fibrillation; D69.6 Thrombocytopenia, unspecified; R73.03 Prediabetes; E66.3 Overweight; M54.17 Radiculopathy, lumbosacral region; G44.209 Tension-type headache, unspecified, not intractable; M50.30 Other cervical disc degeneration, unspecified cervical region; I25.10 Atherosclerotic heart disease of native coronary artery without angina pectoris; E78.5 Hyperlipidemia, unspecified; Z68.27 Body mass index [BMI] 27.0-27.9, adult; Z86.73 Personal history of transient ischemic attack (TIA), and cerebral infarction without residual deficits; Z87.891 Personal history of nicotine dependence; Z82.61 Family history of arthritis; Z82.49 Family history of ischemic heart disease and other diseases of the circulatory system; Z91.148 Patient's other noncompliance with medication regimen for other reason; Z79.890 Hormone replacement therapy; Z79.82 Long term (current) use of aspirin; Z86.16 Personal history of COVID-19
CPT/HCPCS: 70450; 70496; 70498; 70551; 80053; 80061; 81003; 82607; 83036; 83735; 83970; 85025; 85652; 86140; 93005; 97161; 99285; G0378; Q9967

== ENCOUNTER 2024-02-16 16:51 | Outpatient (RCR) | payer MEDICARE, SELFPAY | END 2024-02-16 23:59 | disposition home or self-care (01) | LOC: RPT 16:51 | PROVIDERS: ATTENDING PHYSICIAN Family Medicine | DX: H81.4 Vertigo of central origin (principal); Z73.6 Limitation of activities due to disability; H93.13 Tinnitus, bilateral | CPT/HCPCS: 97110; 97112; 97162 ==

== ENCOUNTER 2024-03-15 12:48 | Outpatient (RCR) | payer MEDICARE, SELFPAY | END 2024-03-15 23:59 | disposition home or self-care (01) | LOC: RPT 12:48 | PROVIDERS: ATTENDING PHYSICIAN Family Medicine | DX: H81.4 Vertigo of central origin (principal); Z73.6 Limitation of activities due to disability; H93.13 Tinnitus, bilateral | CPT/HCPCS: 97110; 97112 ==

== ENCOUNTER → 2024-05-27 14:16 | Outpatient (REF) | payer MEDICARE, SELFPAY | LOC: RAD 14:16 | PROVIDERS: ATTENDING PHYSICIAN Internal Medicine Critical Care Medicine; FAMILY PHYSICIAN Family Medicine | DX: J84.9 Interstitial pulmonary disease, unspecified (principal) | CPT/HCPCS: 71046 ==

== ENCOUNTER → 2024-07-28 09:34 | Outpatient (REF) | payer MEDICARE, SELFPAY ==
[2024-07-28 11:43] LABS: Hematocrit 40.1 % (39.0-52.0); Hemoglobin 13.3 g/dL (13.0-18.0); Mean Corp Hgb Conc. 33.2 g/dL (33.0-37.0); Mean Corpuscular Hgb 30.9 pg (27.0-31.0); Mean Corpuscular Volume 93.3 fL (80.0-94.0); Mean Platelet Volume 11.4 fL (7.4-10.4); Platelet Count 142 10^3/uL (130-400); Red Cell Dist. Width 13.7 % (11.5-14.5); White Blood Cell Count 4.8 10^3/uL (4.8-10.8)
[2024-07-28 12:02] LABS: Iron 121 ug/dl (49-181)
[2024-07-28 13:15] LABS: Absolute Neutrophils -Man Diff 1.5 10^3/uL (1.4-6.5); Atypical Lymphocytes 3 %; Band Neutrophils 0 % (0-3); Lymphocytes 31 % (20-51); Metamyelocytes 2 % (-); Monocytes 31 % (2-9); Normal RBC Morphology Yes; Platelets Checked Yes; Segmented Neutrophils 33 % (42-75); Total Cells Counted 100
[2024-07-28 13:54] LABS: Folate 8.8 ng/ml (2.76-20); Vitamin B12 931 pg/ml (239-931)
[2024-07-29 11:36] LABS: ALT (SGPT) 18 U/L (0-50); AST (SGOT) 25 U/L (17-59); Albumin 4.3 g/dl (3.5-5.0); Alkaline Phosphatase 80 U/L (38-126); Blood Urea Nitrogen 21 mg/dl (9-20); Calcium 9.2 mg/dl (8.4-10.2); Carbon Dioxide 24 mmol/L (22-30); Chloride 106 mmol/L (98-107); Glucose 104 mg/dl (70-99); Potassium 4.4 mmol/L (3.5-5.1); Sodium 142 mmol/L (135-145); Total Protein 6.9 g/dl (6.3-8.2); eGFR > 60.00
== END ==
LOC: RCS 09:34
PROVIDERS: ATTENDING PHYSICIAN Nurse Practitioner Family
DX: R53.82 Chronic fatigue, unspecified (principal); D64.9 Anemia, unspecified; R04.2 Hemoptysis; I25.10 Atherosclerotic heart disease of native coronary artery without angina pectoris
CPT/HCPCS: 36415; 80053; 82607; 82728; 82746; 83540; 85025; 93005

== ENCOUNTER → 2024-10-28 13:52 | Outpatient (REF) | payer MEDICARE, SELFPAY | LOC: HWRAD 13:52 | PROVIDERS: ATTENDING PHYSICIAN Specialist; FAMILY PHYSICIAN Family Medicine | DX: D49.512 Neoplasm of unspecified behavior of left kidney (principal) | CPT/HCPCS: 74150 ==

== ENCOUNTER → 2025-01-02 12:34 | Outpatient (REF) | payer MEDICARE, SELFPAY ==
[2025-01-02 16:41] LABS: Hematocrit 41.1 % (39.0-52.0); Hemoglobin 13.5 g/dL (13.0-18.0); Mean Corp Hgb Conc. 32.8 g/dL (33.0-37.0); Mean Corpuscular Volume 93.0 fL (80.0-94.0); Platelet Count 125 10^3/uL (130-400); Red Cell Dist. Width 13.3 % (11.5-14.5)
[2025-01-02 17:29] LABS: PSA, Total - Diagnostic 2.03 ng/ml (0.0-4.0)
== END ==
LOC: HWLAB 12:34
PROVIDERS: ATTENDING PHYSICIAN Specialist; FAMILY PHYSICIAN Family Medicine
DX: E29.1 Testicular hypofunction (principal); R04.2 Hemoptysis; R35.0 Frequency of micturition
CPT/HCPCS: 36415; 84153; 84403; 85027